=== PATIENT | female | born 1955 | race Caucasian/White ===

== ENCOUNTER 2016-05-26 00:56 | Emergency (ER) | payer OTHER, SELFPAY ==
[2016-05-26 01:13] VITALS: BP 149/76; PULSE 71; RESP 16; TEMP 97.3; O2SAT 94
[2016-05-26] MEDS ORDERED: Sodium Chloride 0.9% 1,000 ML IV STA (01:32)
[2016-05-26 02:13] LABS: BASO % 0.5 % (0.0-2.0); EOS # 0.1 K/uL (0.0-0.7); HEMATOCRIT 40.7 % (34.0-47.0); LYMPH # 1.6 K/uL (1.0-4.3); LYMPH % 18.8 % (20.0-40.0); MEAN CELL VOLUME 93.4 fl (81.0-99.0); MEAN CORPUSCULAR HEMOGLOBIN 30.9 pg (27.0-31.0); MEAN CORPUSCULAR HGB CONC 33.1 g/dL (33.0-37.0); MEAN PLATELET VOLUME 8.5 fl (7.2-11.7); MONO # 0.4 K/uL (0.0-0.8); MONO % 4.8 % (0.0-10.0); NEUT # 6.5 K/uL (1.8-7.0); NEUT % 74.9 % (50.0-75.0); NRBC % 0.2 % (0.0-0.0); RED CELL DISTRIBUTION WIDTH 13.1 % (11.5-14.5); WHITE BLOOD COUNT 8.7 K/uL (4.8-10.8)
--- NOTE | 2016-05-26 02:14 | ED PDOC ---
HPI: Abdomen Time Seen by Provider: 05/26/16 01:03 Chief Complaint (Nursing): Weakness/Neurological Deficit Chief Complaint (Provider): Abdominal pain, vomiting History Per: Patient History/Exam Limitations: no limitations Onset/Duration Of Symptoms: Hrs (1.5) Outside of [place] travel?: No Current Symptoms Are (Timing): Still Present Location Of Pain/Discomfort: Diffuse Quality Of Discomfort: "Pain" Associated Symptoms: Nausea, Vomiting, Diarrhea Additional History Per: Patient Additional Complaint(s): The pt is a 60yo female, with PMHx of CML, gastritis, arthritis, HTN, presents to the ED for evaluation of acute onset nausea and vomiting s/p eating her evening meal and 1 glass of wine. Pt reports multiple episodes of emesis with food and states her vomitus now is mostly bilious but non-bloody. She reports mild abdominal pain and some diarrhea but states she is accustomed to the diarrhea because she takes Gleevec for her leukemia. She currently offers no additional medical complaints. Abnormal Vaginal Bleeding: No Past Medical History Reviewed: Historical Data, Nursing Documentation, Vital Signs Vital Signs: Last Vital Signs Temp 97.3 F L 05/26/16 01:09 Pulse 71 05/26/16 01:09 Resp 16 05/26/16 01:09 BP 149/76 05/26/16 01:09 Pulse Ox 94 L 05/26/16 02:19 - Medical History PMH: Arthritis, CVA, HTN - Family History Family History: States: Unknown Family Hx - Living Arrangements Living Arrangements: With Family - Social History Current smoker - smoking cessation education provided: No Alcohol: None Drugs: Denies - Home Medications Home Medications: Ambulatory Orders Medication Instructions Recorded Acetaminophen/Oxycodone Hydr 1 tab PO Q6 PRN #10 tab 02/15/14 [Percocet 325 mg-2.5 mg] Tramadol HCl [Ultram] 50 mg PO TID PRN #15 tab 02/15/14 Cyclobenzaprine [Flexeril] 5 mg PO TID PRN #15 tab 06/04/14 Naproxen 500 mg PO BID #20 ect 06/04/14 Ondansetron ODT [Zofran ODT] 4 mg PO Q6 PRN #16 odt 05/26/16 - Allergies Allergies/Adverse Reactions: Allergies Allergy/AdvReac Type Severity Reaction Status Date / Time No Known Allergies Allergy Verified 12/15/14 13:51 Review of Systems ROS Statement: Except As Marked, All Systems Reviewed And Found Negative Gastrointestinal: Positive for: Nausea, Vomiting, Abdominal Pain, Diarrhea Physical Exam - Reviewed Nursing Documentation Reviewed: Yes Vital Signs Reviewed: Yes - Physical Exam Appears: Positive for: Well, Non-toxic, No Acute Distress Head Exam: Positive for: ATRAUMATIC, NORMAL INSPECTION, NORMOCEPHALIC Skin: Positive for: Warm, Dry (tacky mucuous membranes), Pallor Eye Exam: Positive for: Normal appearance, EOMI, PERRL Neck: Positive for: Normal, Supple Cardiovascular/Chest: Positive for: Regular Rate, Rhythm Respiratory: Positive for: Normal Breath Sounds. Negative for: Respiratory Distress Gastrointestinal/Abdominal: Positive for: Normal Exam, Soft, Tenderness (mild, diffuse) Neurologic/Psych: Positive for: Alert, Oriented - Laboratory Results Result Diagrams: 05/26/16 02:00 05/26/16 02:00 - ECG O2 Sat by Pulse Oximetry: 94 (Ra) Medical Decision Making Medical Decision Making: Time: 0110 Impression: Abdominal pain, nausea, vomiting and diarrhea in setting of leukemia Plan: -- Lipase -- CBC -- CMP -- PTT -- Prothrombin Time -- Urinalysis -- IV Fluids -- Zofran -- Pepcid --Reassess Time: 0326 Labs reviewed and show no significant abnormalities. Pt reports marked improvement, stable for discharge home. Diagnosis: Acute gastritis Scribe Attestation: Documented by Silvia Lora acting as a scribe for Javier Simental MD. Provider Attestation: All medical record entries made by the Scribe were at my direction and personally dictated by me. I have reviewed the chart and agree that the record accurately reflects my personal performance of the history, physical exam, medical decision making, and the department course for this patient. I have also personally directed, reviewed, and agree with the discharge instructions and disposition. Disposition - Clinical Impression Clinical Impression: Gastritis - Disposition Disposition: Routine/Home Disposition Time: 03:27 Condition: IMPROVED Prescriptions: Ondansetron ODT [Zofran ODT] 4 mg PO Q6 PRN #16 odt PRN Reason: Nausea/Vomiting Instructions: Gastritis (ED) Print Language: THAI
[2016-05-26 02:19] LABS: CHLORIDE 110 mmol/L (98-107); POTASSIUM 3.5 MMOL/L (3.6-5.0); SODIUM 151 mmol/l (132-148)
[2016-05-26 02:21] LABS: ALB/GLOB RATIO 1.5 (1.0-2.1); ALKALINE PHOSPHATASE 106 U/L (38-126); AST/SGOT 30 U/L (14-36); BILIRUBIN,TOTAL 0.4 mg/dl (0.2-1.3); BLOOD UREA NITROGEN 21 mg/dl (7-17); CARBON DIOXIDE 23 mmol/L (22-30); GFR AFRICAN-AMERICAN > 60; TOTAL PROTEIN 7.9 G/DL (6.3-8.2)
[2016-05-26 02:21] LABS: RBC URINE 2 /hpf (0-3); URINE BACTERIA RARE (<OCC); URINE BILIRUBIN NEGATIVE (NEGATIVE); URINE BLOOD NEGATIVE (NEGATIVE); URINE COLOR YELLOW (YELLOW); URINE GLUCOSE (UA) NEG (Normal); URINE KETONE NEGATIVE (NEGATIVE); URINE LEUKOCYTE ESTERASE NEG Leu/uL (Negative); URINE PROTEIN NEGATIVE (NEGATIVE); URINE UROBILINOGEN 0.2-1.0 mg/dL (0.2-1.0); WBC URINE 4 /hpf (0-5)
[2016-05-26 02:22] LABS: ALT/SGPT 41 U/L (9-52); CALCIUM 10.3 mg/dL (8.4-10.2); GLUCOSE,RANDOM 148 mg/dL (65-105); LIPASE 125 U/L (23-300)
== END 2016-05-26 05:05 | disposition home or self-care (01) ==
LOC: H.ER 00:56
DX: K29.00 Acute gastritis without bleeding (principal); I10 Essential (primary) hypertension